=== PATIENT | male | born 1935 ===

== ENCOUNTER 2017-04-19 05:30 | Emergency (ER) | payer MEDICARE, OTHER ==
[2017-04-19 05:55] VITALS: TEMP 97.4
--- NOTE | 2017-04-19 06:46 | ED PDOC ---
HPI: Headache Time Seen by Provider: 04/19/17 05:55 Chief Complaint (Nursing): Headache Chief Complaint (Provider): headache History Per: Patient, Family History/Exam Limitations: other (dementia) Onset/Duration Of Symptoms: Days (1 WEEK) Current Symptoms Are (Timing): Still Present Additional Complaint(s): Pt with intermittent headaches since Wednesday. Associated with neck pain. gave advil initially on Wednesday with relief. But last night he was screaming about the pain which is why she brought him in. She reports that she didn't bring him in earlier because, even though he reported pain, he didn't appear to be in any distress. He started screaming last night but considered it was due to his dementia. It occurred again this morning but appears to have resolved again. brought him to see if there was anything to be concerned about. Pt currently asymptomatic. PMD Dr Landis Past Medical History Reviewed: Historical Data, Nursing Documentation, Vital Signs Vital Signs: Last Vital Signs Temp 97.4 F L 04/19/17 05:53 Pulse 69 04/19/17 05:53 Resp 16 04/19/17 05:53 BP 154/50 H 04/19/17 05:53 Pulse Ox 97 04/19/17 05:53 - Medical History PMH: Dementia Denies: Diabetes, HTN - Social History Current smoker - smoking cessation education provided: No Alcohol: < 2 Drinks/Day (but none in last 2 days) Drugs: Denies - Allergies Allergies/Adverse Reactions: Allergies Allergy/AdvReac Type Severity Reaction Status Date / Time No Known Allergies Allergy Verified 04/19/17 05:55 - ECG O2 Sat by Pulse Oximetry: 97 Disposition - Disposition
[2017-04-19 07:13] LABS: BASO # 0.1 K/uL (0.0-0.2); BASO % 0.5 % (0.0-2.0); EOS # 0.1 K/uL (0.0-0.7); EOS % 0.8 % (0.0-4.0); HEMOGLOBIN 12.9 g/dL (12.0-18.0); LYMPH # 1.9 K/uL (1.0-4.3); LYMPH % 15.1 % (20.0-40.0); MEAN CELL VOLUME 89.4 fl (80.0-94.0); MEAN CORPUSCULAR HEMOGLOBIN 28.7 pg (27.0-31.0); MEAN CORPUSCULAR HGB CONC 32.1 g/dL (33.0-37.0); MEAN PLATELET VOLUME 11.7 fl (7.2-11.7); MONO # 0.8 K/uL (0.0-0.8); MONO % 6.4 % (0.0-10.0); NEUT # 9.7 K/uL (1.8-7.0); NEUT % 77.2 % (50.0-75.0); RBC 4.48 Mil/uL (4.40-5.90); RED CELL DISTRIBUTION WIDTH 13.7 % (11.5-14.5); WHITE BLOOD COUNT 12.6 K/uL (4.8-10.8)
[2017-04-19 07:38] LABS: ALBUMIN 4.1 g/dL (3.5-5.0); ALT/SGPT 21 U/L (21-72); AST/SGOT 36 U/L (17-59); BLOOD UREA NITROGEN 12 mg/dl (9-20); CALCIUM 9.5 mg/dL (8.4-10.2); GFR AFRICAN-AMERICAN > 60; GFR NON-AFRICAN AMERICAN > 60; MAGNESIUM 1.9 MG/DL (1.6-2.3)
--- NOTE | 2017-04-19 08:10 | CT ---
EXAM: CT Head Without Intravenous Contrast EXAM DATE/TIME: 04/19/2017 6:41 AM CLINICAL HISTORY: 81 years old, male; Pain; Headache; Tension TECHNIQUE: Axial computed tomography images of the head/brain without intravenous contrast. All CT scans at this facility use one or more dose reduction techniques, viz.: automated exposure control; ma/kV adjustment per patient size (including targeted exams where dose is matched to indication; i.e. head); or iterative reconstruction technique. Coronal and sagittal reformatted images were created and reviewed. COMPARISON: No relevant prior studies available. FINDINGS: There is no pathological intra-axial or extra-axial fluid collection. No edema, midline shift or mass effect is noted. Few scattered periventricular white matter hypoattenuation of small vessel disease are noted. There is normal kim white differentiation. There is cerebral atrophy. Calvarium is unremarkable. Included paranasal sinuses and mastoids are clear. IMPRESSION: 1. No acute cerebral hemorrhage or edema. 2. Small vessel ischemic disease and atrophy.
--- NOTE | 2017-04-19 08:21 | ED PDOC ---
- Laboratory Results Result Diagrams: 04/19/17 07:04 04/19/17 07:04 - ECG O2 Sat by Pulse Oximetry: 97 (RA) Pulse Ox Interpretation: Normal Medical Decision Making Medical Decision Making: Time: 7:00 Patient was endorsed to me by Dr. Lizbet Gutierrez at this time. Pending labs, CT scan, and reevaluation. Time: 8:10 CT HEAD W/O CONTRAST: FINDINGS: There is no pathological intra-axial or extra-axial fluid collection. No edema, midline shift or mass effect is noted. Few scattered periventricular white matter hypoattenuation of small vessel disease are noted. There is normal kim white differentiation. There is cerebral atrophy. Calvarium is unremarkable. Included paranasal sinuses and mastoids are clear. IMPRESSION: 1. No acute cerebral hemorrhage or edema. 2. Small vessel ischemic disease and atrophy. Dictated By: Sarahy Bernabe Dictated Date/Time: 04/19/17809 Signed By: MD Sarahy Bernabe Date Signed: 809 Transcribed By: JOCY Transcribe Date/Time : 04/19/17809 AATP02/VRD Labs reviewed: WBC is 12.6 but otherwise labs appear grossly normal. Urine is significant for UTI. Time: 9:46 * Macrobid 100 mg x1 given in ER Patient will be discharged home, provided with rx for antibiotics. Advised to follow up with PMD for further evaluation in 2-3 days. There is agreement to discharge plan. Return is symptoms persist or worsen. Clinical Impression: Urinary Tract Infection Scribe Attestation: Documented by Bibiana Conroy, acting as a scribe for Shireen Hussein MD Provider Scribe Attestation: All medical record entries made by the Scribe were at my direction and personally dictated by me. I have reviewed the chart and agree that the record accurately reflects my personal performance of the history, physical exam, medical decision making, and the department course for this patient. I have also personally directed, reviewed, and agree with the discharge instructions and disposition. Disposition Counseled Patient/Family Regarding: Studies Performed, Diagnosis, Need For Followup, Rx Given - Clinical Impression Clinical Impression: Headache, UTI (urinary tract infection) - POA Present On Arrival: None - Disposition Disposition: Routine/Home Disposition Time: 09:48 Forms: [email or web address] (Uruguayan)
[2017-04-19 09:42] LABS: SQUAMOUS EPITHIAL 1 /hpf (0-5); URINE BACTERIA RARE (<OCC); URINE BILIRUBIN NEGATIVE (NEGATIVE); URINE BLOOD NEGATIVE (NEGATIVE); URINE CLARITY CLOUDY (Clear); URINE COLOR YELLOW (YELLOW); URINE GLUCOSE (UA) NEG (Normal); URINE HYALINE CAST 0-2 /hpf (0-2); URINE LEUKOCYTE ESTERASE MOD Leu/uL (Negative); URINE NITRATE NEGATIVE (NEGATIVE); URINE PROTEIN 30 mg/dL (NEGATIVE)
[2017-04-19 10:11] VITALS: BP 150/78; PULSE 74; RESP 18; O2SAT 96
== END 2017-04-19 10:10 | disposition home or self-care (01) ==
LOC: H.ER 05:30
DX: R51 Headache (principal); N39.0 Urinary tract infection, site not specified; F03.90 Unspecified dementia, unspecified severity, without behavioral disturbance, psychotic disturbance, mood disturbance, and anxiety

== ENCOUNTER 2017-07-04 18:49 | Emergency (ER) | payer MEDICARE, OTHER ==
[2017-07-04 18:58] VITALS: BP 189/82; PULSE 60; RESP 20; TEMP 97.4; O2SAT 100
[2017-07-04 19:59] LABS: BASO % 0.4 % (0.0-2.0); EOS # 0.1 K/uL (0.0-0.7); HEMOGLOBIN 12.8 g/dL (12.0-18.0); LYMPH # 2.2 K/uL (1.0-4.3); LYMPH % 23.9 % (20.0-40.0); MEAN CELL VOLUME 90.8 fl (80.0-94.0); MEAN CORPUSCULAR HEMOGLOBIN 29.9 pg (27.0-31.0); MEAN PLATELET VOLUME 11.9 fl (7.2-11.7); MONO # 0.6 K/uL (0.0-0.8); MONO % 6.2 % (0.0-10.0); NEUT # 6.1 K/uL (1.8-7.0); NEUT % 68.5 % (50.0-75.0); RBC 4.28 Mil/uL (4.40-5.90); RED CELL DISTRIBUTION WIDTH 15.1 % (11.5-14.5)
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
[2017-07-04 20:09] LABS: CALCIUM 9.3 mg/dL (8.4-10.2); GFR AFRICAN-AMERICAN > 60; GFR NON-AFRICAN AMERICAN > 60
[2017-07-04 20:14] LABS: ALT/SGPT 24 U/L (21-72); AST/SGOT 40 U/L (17-59); BLOOD UREA NITROGEN 15 mg/dl (9-20)
--- NOTE | 2017-07-05 08:03 | CARD ---
APPROVED REPORT EKG Measurement Heart [id number] <Conclusion> Normal sinus rhythm Moderate voltage criteria for LVH, may be normal variant Cannot rule out Septal infarct, age undetermined Abnormal ECG
== END 2017-07-04 21:03 | disposition home or self-care (01) ==
LOC: H.ER 18:49
DX: F03.90 Unspecified dementia, unspecified severity, without behavioral disturbance, psychotic disturbance, mood disturbance, and anxiety (principal)
CPT/HCPCS: 80053; 82948; 85025; 93005; 99283; G0480

== ENCOUNTER 2017-07-28 09:30 | Emergency (ER) | payer MEDICARE, OTHER ==
[2017-07-28 09:46] VITALS: BP 162/82; PULSE 81; RESP 18; TEMP 97; O2SAT 100
--- NOTE | 2017-07-28 10:22 | ED PDOC ---
HPI: General Adult Time Seen by Provider: 07/28/17 10:15 Chief Complaint (Nursing): Medical Clearance Chief Complaint (Provider): eval History Per: Patient, EMS, Family () Additional Complaint(s): 81-year-old male with history of dementia presents to emergency department via ambulance for evaluation. Patient was found wandering in the street. Patient's is currently at work and nobody was at home to watch patient. He offers no acute complaints, denies any fall or trauma. He denies chest pain, shortness of breath or dyspnea on exertion. Past Medical History Reviewed: Historical Data Vital Signs: Last Vital Signs Temp 97 F L 07/28/17 09:43 Pulse 81 07/28/17 09:43 Resp 18 07/28/17 09:43 BP 162/82 H 07/28/17 09:43 Pulse Ox 100 07/28/17 10:22 - Medical History PMH: Dementia - Family History Family History: States: No Known Family Hx - Living Arrangements Living Arrangements: With Family - Social History Current smoker - smoking cessation education provided: No Alcohol: None Drugs: Denies - Home Medications Home Medications: Ambulatory Orders Medication Instructions Recorded Nitrofurantoin Macrocrystals 100 mg PO BID #13 cap 04/19/17 [Macrobid] - Allergies Allergies/Adverse Reactions: Allergies Allergy/AdvReac Type Severity Reaction Status Date / Time No Known Allergies Allergy Verified 07/28/17 09:42 Review of Systems ROS Statement: Except As Marked, All Systems Reviewed And Found Negative Constitutional: Negative for: Fever Respiratory: Negative for: Cough Gastrointestinal: Negative for: Nausea, Vomiting Neurological: Negative for: Headache, Dizziness Physical Exam - Reviewed Nursing Documentation Reviewed: Yes Vital Signs Reviewed: Yes - Physical Exam Appears: Positive for: Well, Non-toxic, No Acute Distress Skin: Negative for: Rash Eye Exam: Positive for: Normal appearance Cardiovascular/Chest: Positive for: Regular Rate, Rhythm Respiratory: Positive for: Normal Breath Sounds Extremity: Positive for: Normal ROM Neurologic/Psych: Positive for: Alert, Oriented - ECG O2 Sat by Pulse Oximetry: 100 Pulse Ox Interpretation: Normal Medical Decision Making Medical Decision Makin81 year old with dementia presents for evaluation Patient's was notified that patient was brought here and she came right to ED. states she is in the process of obtaining power of head loader to try and find placement for patient or visiting nurse services for home. Patient is stable for discharge with at this time. I stressed to the importance of follow up with PMD. Disposition - Clinical Impression Clinical Impression: Dementia - Patient ED Disposition Is Patient to be Admitted: No Counseled Patient/Family Regarding: Diagnosis, Need For Followup - Disposition Referrals: [facility] [Outside] Disposition: Routine/Home Disposition Time: 10:29 Condition: STABLE Additional Instructions: Follow up with primary care doctor to discuss placement in assisted living or obtaining visiting nurse services at home. Instructions: General (DC), Dementia (DC) Forms: [employer] (Grenadian)
== END 2017-07-28 11:00 | disposition home or self-care (01) ==
LOC: H.ER 09:30
DX: F03.90 Unspecified dementia, unspecified severity, without behavioral disturbance, psychotic disturbance, mood disturbance, and anxiety (principal)

== ENCOUNTER 2017-11-14 20:18 | Emergency (ER) | payer MEDICARE, OTHER ==
[2017-11-14 20:39] VITALS: RESP 18
--- NOTE | 2017-11-14 21:21 | ED PDOC ---
HPI: Psych/Substance Abuse Time Seen by Provider: 11/14/17 20:50 Chief Complaint (Nursing): Anxiety Chief Complaint (Provider): Dementia ED Caveat: Acuity of Condition History Per: EMS History/Exam Limitations: clinical condition Onset/Duration Of Symptoms: Days Current Symptoms Are (Timing): Still Present Suicide/Self Injury Attempted (Context): None Modifying Factor(s): None Additional Complaint(s): 81 y/o male with a PMHx of dementia dropped off by his for evaluation of Dementia. History obtained from previous chart due to patient's severe dementia. Patient was dropped of by his for dizziness as well as difficulty remembering things including finding his own house. However, is not present in the ER to given any more information. Patient does feel like forgetting things often and feeling anxious and dizzy PMD: Cannot recall. Past Medical History Reviewed: Historical Data, Nursing Documentation, Vital Signs Vital Signs: Last Vital Signs Temp 98.6 F 11/14/17 20:30 Pulse 57 L 11/14/17 20:30 Resp 18 11/14/17 20:30 BP 153/67 H 11/14/17 20:30 Pulse Ox 100 11/14/17 20:30 - Medical History PMH: Dementia Denies: Diabetes, HTN - Surgical History Surgical History: No Surg Hx - Family History Family History: States: Unknown Family Hx - Home Medications Home Medications: Ambulatory Orders Medication Instructions Recorded Nitrofurantoin Macrocrystals 100 mg PO BID #13 cap 04/19/17 [Macrobid] - Allergies Allergies/Adverse Reactions: Allergies Allergy/AdvReac Type Severity Reaction Status Date / Time No Known Allergies Allergy Verified 07/28/17 09:42 Review of Systems ROS Statement: Except As Marked, All Systems Reviewed And Found Negative Psych: Positive for: Other (Psychiatric Evaluation) Physical Exam - Reviewed Nursing Documentation Reviewed: Yes Vital Signs Reviewed: Yes - Physical Exam Appears: Positive for: Well, No Acute Distress Head Exam: Positive for: ATRAUMATIC, NORMOCEPHALIC Skin: Positive for: Warm, Dry Eye Exam: Positive for: EOMI, PERRL ENT: Negative for: Pharyngeal Erythema, Tonsillar Exudate Neck: Positive for: Painless ROM, Supple Cardiovascular/Chest: Positive for: Regular Rate, Rhythm. Negative for: Murmur Respiratory: Positive for: Normal Breath Sounds. Negative for: Respiratory Distress Gastrointestinal/Abdominal: Positive for: Soft. Negative for: Tenderness Back: Positive for: Normal Inspection. Negative for: Decreased ROM Extremity: Positive for: Normal ROM. Negative for: Deformity Lymphatic: Negative for: Adenopathy Neurologic/Psych: Positive for: Alert, accreditation specialist II-XII (intact), Oriented (x2 ( person and place)), Mood/Affect (Normal), Gait (steady), Other (Confused but appropriately conversive. Trails off at the ends of most of his sentences.). Negative for: Motor/Sensory Deficits, Aphasia, Facial Droop - Laboratory Results Result Diagrams: 11/14/17 21:25 11/14/17 21:25 - ECG ECG: Positive for: Interpreted By Me, Viewed By Me ECG Rhythm: Positive for: Normal QRS, Normal ST Segment, Sinus Bradycardia Rate: 54 O2 Sat by Pulse Oximetry: 100 (RA) Pulse Ox Interpretation: Normal Medical Decision Making Medical Decision Making: Time: 2116 Impression: Dementia Plan: -- EKG -- Alcohol Serum -- CMP -- Urine Drug Screen -- Magnesium -- Phosphorus -- Thyroid Stimulating Hormone -- Troponin I -- Crisis Evaluation -- ED Urine Dipstick -- CBC with differentials [address] Mari pending Udip and CT studies. ____ Scribe Attestation: Documented by Zenon Nolen acting as a scribe for Dr. Lizbet Gutierrez. Provider Scribe Attestation: All medical record entries made by the Scribe were at my direction and personally dictated by me. I have reviewed the chart and agree that the record accurately reflects my personal performance of the history, physical exam, medical decision making, and the department course for this patient. I have also personally directed, reviewed, and agree with the discharge instructions and disposition. Disposition - Clinical Impression Clinical Impression: Dementia - Patient ED Disposition Is Patient to be Admitted: Transfer of Care - Disposition Disposition: Transfer of Care Disposition Time: 00:00 Condition: STABLE Instructions: Dementia (DC) Patient Signed Over To: Prashanth Mari
[2017-11-14 21:37] LABS: BASO % 0.4 % (0.0-2.0); EOS # 0.2 K/uL (0.0-0.7); HEMOGLOBIN 12.1 g/dL (12.0-18.0); LYMPH # 2.6 K/uL (1.0-4.3); LYMPH % 33.9 % (20.0-40.0); MEAN CELL VOLUME 91.1 fl (80.0-94.0); MEAN CORPUSCULAR HEMOGLOBIN 29.7 pg (27.0-31.0); MEAN CORPUSCULAR HGB CONC 32.6 g/dL (33.0-37.0); MEAN PLATELET VOLUME 11.6 fl (7.2-11.7); MONO # 0.6 K/uL (0.0-0.8); MONO % 7.4 % (0.0-10.0); NEUT # 4.4 K/uL (1.8-7.0); NEUT % 56.3 % (50.0-75.0); RBC 4.07 Mil/uL (4.40-5.90); RED CELL DISTRIBUTION WIDTH 14.5 % (11.5-14.5); WHITE BLOOD COUNT 7.7 K/uL (4.8-10.8)
[2017-11-14 21:47] LABS: ALB/GLOB RATIO 1.3 (1.0-2.1); ALBUMIN 3.8 g/dL (3.5-5.0); ALT/SGPT 24 U/L (21-72); AST/SGOT 30 U/L (17-59); BLOOD UREA NITROGEN 16 mg/dl (9-20); GFR AFRICAN-AMERICAN > 60; GFR NON-AFRICAN AMERICAN > 60
--- NOTE | 2017-11-15 00:20 | ED PDOC ---
- Laboratory Results Result Diagrams: 11/14/17 21:25 11/14/17 21:25 - ECG O2 Sat by Pulse Oximetry: 100 (RA) Pulse Ox Interpretation: Normal Medical Decision Making Medical Decision Makin:00 Patient signed out to me by Dr. Gutierrez pending CT Head, UDip. Patient has been cleared for discharge by Dr Burris. 0010 CT Head FINDINGS: Brain: No acute intracranial hemorrhage. No abnormal extra-axial fluid collection. No herniation. Patent basal cisterns. Redemonstrated parenchymal atrophy concordant with the patient's age. Preserved kim-white matter differentiation. No evidence of acute ischemia. Redemonstrated mild cerebral white matter low attenuation compatible with chronic small vessel ischemic changes. No evident intracranial mass. Ventricles: Redemonstrated compensatory enlargement of the ventricles concordant with the parenchymal atrophy. Bones/joints: No evident acute fracture or suspicious osseous lesion. Sinuses: The imaged paranasal sinuses are clear. Mastoid air cells: The mastoid air cells are clear. Orbits: No evident acute abnormality of the intraorbital contents. Redemonstrated bilateral intraocular lens implants. Soft tissues: No acute findings. IMPRESSION: 1. No evident acute abnormality or significant change from the prior study. 2. Redemonstrated findings as described above. Scribe Attestation: Documented by Mary Aguilar, acting as a scribe for Prashanth Mari MD. Provider Scribe Attestation: All medical record entries made by the Scribe were at my direction and personally dictated by me. I have reviewed the chart and agree that the record accurately reflects my personal performance of the history, physical exam, medical decision making, and the department course for this patient. I have also personally directed, reviewed, and agree with the discharge instructions and disposition. Disposition Doctor Will See Patient In The: Office Counseled Patient/Family Regarding: Studies Performed, Diagnosis, Need For Followup - Clinical Impression Clinical Impression: Dementia - POA Present On Arrival: None - Disposition Disposition: Routine/Home Disposition Time: 00:29 Condition: GOOD Instructions: Dementia (DC)
[2017-11-15 00:36] VITALS: BP 164/58; TEMP 97.8
[2017-11-15 01:42] LABS: BARBITURATES, UR NEGATIVE (NEGATIVE); BENZODIAZEPINES, UR NEGATIVE (NEGATIVE); OPIATES, UR NEGATIVE (NEGATIVE); PHENCYCLIDINE, UR NEGATIVE (NEGATIVE)
--- NOTE | 2017-11-15 08:41 | CARD ---
APPROVED REPORT Date of service: 11/14/2017 EKG Measurement Heart [id number] <Conclusion> Sinus bradycardia Otherwise normal ECG
--- NOTE | 2017-11-15 10:32 | CT ---
Date of service: 11/14/2017 PROCEDURE: CT HEAD WITHOUT CONTRAST. HISTORY: dizziness COMPARISON: Noncontrast head CT 04/19/2017. TECHNIQUE: Axial computed tomography images were obtained through the head/brain without intravenous contrast. Radiation dose: Total exam DLP = 828.08 mGy-cm. This CT exam was performed using one or more of the following dose reduction techniques: Automated exposure control, adjustment of the mA and/or kV according to patient size, and/or use of iterative reconstruction technique. FINDINGS: HEMORRHAGE: No intracranial hemorrhage. BRAIN: Corticomedullary differentiation remains good throughout once again. Stable, proportional, diffuse cerebral atrophy and chronic microangiopathy are reiterated. No interval mass effect is identified or suspicious extra-axial fluid collection in the midline brain and appears diffusely unremarkable nevertheless. Posterior fossa contents remain unremarkable including the brainstem. VENTRICLES: Unremarkable. No hydrocephalus. CALVARIUM: Unremarkable. PARANASAL SINUSES: Unremarkable as visualized. No significant inflammatory changes. MASTOID AIR CELLS: Unremarkable as visualized. No inflammatory changes. OTHER FINDINGS: None. IMPRESSION: 1. No acute intracranial findings by standard CT criteria. 2. Stable age related neuro degenerative findings as discussed above as compared to prior head CT 04/19/2017. Concordant preliminary report from [facility], 11/15/2017.
[2017-11-15 14:29] VITALS: PULSE 54; O2SAT 100
== END 2017-11-15 03:10 | disposition home or self-care (01) ==
LOC: H.ER 20:18
DX: F03.90 Unspecified dementia, unspecified severity, without behavioral disturbance, psychotic disturbance, mood disturbance, and anxiety (principal); Z00.8 Encounter for other general examination
CPT/HCPCS: 70450; 80053; 83735; 84100; 84443; 84484; 85025; 93005; 99283; G0480

== ENCOUNTER 2018-01-11 17:51 | Emergency (ER) | payer MEDICARE, OTHER ==
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
[2018-01-11 20:19] LABS: BASO % 0.4 % (0.0-2.0); EOS # 0.1 K/uL (0.0-0.7); EOS % 1.5 % (0.0-4.0); HEMOGLOBIN 12.7 g/dL (12.0-18.0); LYMPH # 2.3 K/uL (1.0-4.3); LYMPH % 33.9 % (20.0-40.0); MEAN CORPUSCULAR HEMOGLOBIN 29.8 pg (27.0-31.0); MEAN CORPUSCULAR HGB CONC 33.1 g/dL (33.0-37.0); MEAN PLATELET VOLUME 11.8 fl (7.2-11.7); MONO # 0.5 K/uL (0.0-0.8); MONO % 7.2 % (0.0-10.0); NEUT # 3.9 K/uL (1.8-7.0); NRBC % 0.1 % (0.0-0.0); RBC 4.26 Mil/uL (4.40-5.90); RED CELL DISTRIBUTION WIDTH 14.4 % (11.5-14.5); WHITE BLOOD COUNT 6.9 K/uL (4.8-10.8)
[2018-01-11 20:26] LABS: BLOOD UREA NITROGEN 16 mg/dl (9-20); CALCIUM 9.3 mg/dL (8.4-10.2); GFR NON-AFRICAN AMERICAN > 60
--- NOTE | 2018-01-11 23:12 | ED PDOC ---
- Laboratory Results Result Diagrams: 01/11/18 20:12 01/11/18 20:12 - ECG O2 Sat by Pulse Oximetry: 100 (RA) Pulse Ox Interpretation: Normal Medical Decision Making Medical Decision Making: Time: 2300 Patient endorsed to me by Dr. Mari pending crisis evaluation. 0100 Patient will need [facility] screening, stable, ambulatory at this time 0400 CXR shows no acute pathology, EKG shows no acute pathology Medically cleared [address] Tapia pending [facility] Eval Scribe Attestation: Documented by Toi Vora acting as a scribe for Igor Galdamez MD Provider Scribe Attestation: All medical record entries made by the Scribe were at my direction and personally dictated by me. I have reviewed the chart and agree that the record accurately reflects my personal performance of the history, physical exam, medical decision making, and the department course for this patient. I have also personally directed, reviewed, and agree with the discharge instructions and disposition. Disposition - Clinical Impression Clinical Impression: Dementia - POA Present On Arrival: None - Disposition Disposition: Transfer of Care Disposition Time: 07:00 Condition: STABLE Forms: [employer] (German) Patient Signed Over To: Dewey Tapia Handoff Comments: pending [facility] Eval
[2018-01-12 03:52] LABS: SQUAMOUS EPITHIAL < 1 /hpf (0-5); URINE BACTERIA RARE (<OCC); URINE BILIRUBIN NEGATIVE (NEGATIVE); URINE BLOOD NEGATIVE (NEGATIVE); URINE CLARITY SLIGHTY-CLOUDY (Clear); URINE COLOR YELLOW (YELLOW); URINE GLUCOSE (UA) NEG (Normal); URINE LEUKOCYTE ESTERASE NEG Leu/uL (Negative); URINE PROTEIN NEGATIVE (NEGATIVE); URINE UROBILINOGEN 0.2-1.0 mg/dL (0.2-1.0)
[2018-01-12 04:08] LABS: BARBITURATES, UR NEGATIVE (NEGATIVE); BENZODIAZEPINES, UR NEGATIVE (NEGATIVE); OPIATES, UR NEGATIVE (NEGATIVE); PHENCYCLIDINE, UR NEGATIVE (NEGATIVE)
--- NOTE | 2018-01-12 06:35 | CARD ---
APPROVED REPORT Date of service: 01/12/2018 EKG Measurement Heart [id number] <Conclusion> Normal sinus rhythm Normal Electrocardiogram
--- NOTE | 2018-01-12 08:01 | RAD ---
Date of service: 01/12/2018 HISTORY: aggressive behavior COMPARISON: No prior. TECHNIQUE: Chest PA and lateral FINDINGS: LUNGS: No consolidation A subcentimeter left mid lung zone possible pulmonary nodule is present. This projects over the anterior left 3rd rib and scapula. Origin and clinical significance unknown. PLEURA: No significant pleural effusion identified. No pneumothorax apparent. CARDIOVASCULAR: Normal heart size. Tortuous and calcified thoracic aorta. OSSEOUS STRUCTURES: Thoracic spondylosis VISUALIZED UPPER ABDOMEN: Normal. OTHER FINDINGS: None. IMPRESSION: Possible left mid lung zone sub cm pulmonary nodule. A CT chest exam without contrast (or comparison with chest x-rays ensuring stability for 2 years) recommended Comments: Study marked for PA review .
--- NOTE | 2018-01-12 08:15 | ED PDOC ---
- Laboratory Results Result Diagrams: 01/11/18 20:12 01/11/18 20:12 - ECG O2 Sat by Pulse Oximetry: 100 (RA) Medical Decision Making Medical Decision Making: Time: 07:00 Took over care from Dr. Galdamez. Provider will follow up on [facility] evaluation. -------- Scribe Attestation: Documented by Rosendo Riggs, acting as a scribe for Dewey Tapia MD. Provider Scribe Attestation: All medical record entries made by the Scribe were at my direction and personally dictated by me. I have reviewed the chart and agree that the record accurately reflects my personal performance of the history, physical exam, me dical decision making, and the department course for this patient. I have also personally directed, reviewed, and agree with the discharge instructions and disposition. 1300: [facility] saw pt. and does not meet criteria for admit. Pending call from to take pt. home. 1443: Police unable to get in touch with . Unable to safely dc pt. home due to poor dementia. Case management contacted and made aware of the case. They will evaluate pt. and case to help further dispo. Disposition - Clinical Impression Clinical Impression: Dementia - POA Present On Arrival: None - Disposition Disposition: Transfer of Care Disposition Time: 14:44 Condition: STABLE Patient Signed Over To: Lizbet Gutierrez
[2018-01-12 08:55] VITALS: RESP 18
[2018-01-12 17:22] VITALS: BP 140/69; PULSE 71; TEMP 97.9; O2SAT 99
== END 2018-01-12 17:21 | disposition home or self-care (01) ==
LOC: H.ER 17:51
DX: F02.80 Dementia in other diseases classified elsewhere, unspecified severity, without behavioral disturbance, psychotic disturbance, mood disturbance, and anxiety (principal); G30.9 Alzheimer's disease, unspecified
CPT/HCPCS: 71046; 80048; 81003; 85025; 87086; 93005; 99284; G0480